=== PATIENT | male | born 1940 | race Caucasian/White ===

== ENCOUNTER 2016-10-06 07:46 | Emergency (ER) | payer MEDICARE, OTHER ==
[~2016-10-06] VITALS: Ht 185.4 cm; Wt 96.8 kg
[~2016-10-06 07:46] MED LIST: ASPIRIN 81M81 MG/TA2 PO; CARDIZEM120 MG PO; COD LIVER OIL1 CAP PO; COLOSTRUM PO; COUMADIN 5MG5 MG/TAB PO; DHEA 50 MG TAB1 EACH PO; GLUCOSAMINE & C1 CA2 PO; K-DUR 10 MEQ T10 MEQ PO; LASIX 20MG TABL20 MG PO; MIRALAX PA17 GM/Dose PO; NIACOR500 MG PO; PRAVACHOL 40MG40 MG PO; PRIL40 PO; PROSCAR 5MG5 MG PO; REMERON30 MG PO; SENNA8.6 MG PO; SINEQUAN 2525 MG/CAP PO; TYLENOL 500MG500 MG PO; VITAMIN C500 MG PO; ZETIA 10MG TAB10 MG PO; [UNRECOGNIZED DRUG - OTHER]
[2016-10-06 09:10] LABS: INR 2.6 (0.8-3.0); PROTHROMBIN TIME 29.9 SECONDS (9.7-12.8)
[2016-10-06] MEDS ORDERED: NORCO 325 MG-51 TAB PO (09:48)
[2016-10-06 10:08] VITALS: BP 134/77; PULSE 85; TEMP 97.7
== END 2016-10-06 10:07 | disposition home or self-care (01) ==
LOC: COL.ER 07:46
PROVIDERS: Emergency Medicine
DX: M25.561 Pain in right knee (principal); M25.461 Effusion, right knee
CPT/HCPCS: J1885

== ENCOUNTER 2017-03-30 14:54 | Emergency (ER) | payer MEDICARE, OTHER ==
[~2017-03-30] VITALS: Ht 185.4 cm; Wt 92.7 kg
[~2017-03-30 14:54] MED LIST changes: +NORCO 325 MG-51 TAB PO
[2017-03-30 14:57] VITALS: TEMP 97.8
[2017-03-30 15:40] LABS: BASO % 0.6 % (0.0-2.0); EOS # 0.1 (0.0-0.7); EOS % 1.7 % (0-4.0); GRAN # 3.6 (1.4-6.5); GRAN % 57.1 % (42.2-75.2); HEMATOCRIT 44.2 % (42.0-52.0); HEMOGLOBIN 15.3 g/dl (13.5-18.0); LYMPH # 1.9 (1.2-3.4); LYMPH % 29.4 % (20.0-51.0); MEAN CELL VOLUME 89 fl (80.0-100.0); MEAN CORPUSCULAR HEMOGLOBIN 31 pg (27.0-31.0); MEAN CORPUSCULAR HGB CONC 35 g/dl (33.0-37.0); MEAN PLATELET VOLUME 8.8 fl (7.4-10.4); MONO # 0.7 (0.1-0.6); MONO % 11.2 % (1.7-9.3); PLATELET COUNT 265 K/mm3 (130-400); RED BLOOD COUNT 4.96 M/mm3 (4.20-5.60); REDCELL DISTRIBUTION WIDTH-CV 13.5 % (11.5-14.5); WHITE BLOOD COUNT 6.4 K/mm3 (4.8-10.8)
[2017-03-30 15:49] LABS: ADJUSTED CALCIUM 9.4 mg/dL (8.4-10.2); ALANINE AMINOTRANSFERASE 48 U/L (21-72); ALBUMIN 4.1 gm/dL (3.5-5.0); ALKALINE PHOSPHATASE 55 U/L (50-136); ANION GAP 12 mmol/L (7-16); BILIRUBIN,TOTAL 0.8 mg/dL (0.0-1.0); BLOOD UREA NITROGEN 15 mg/dL (9-20); CALCIUM 9.5 mg/dL (8.4-10.2); CARBON DIOXIDE 24 mmol/L (22-30); CHLORIDE 100 mmol/L (98-107); CREATININE, serum 0.63 mg/dL (0.66-1.25); GLUCOSE 102 mg/dL (74-106); POTASSIUM 4.1 mmol/L (3.4-5.0); SODIUM 136 mmol/L (137-145); TOTAL PROTEIN 6.9 gm/dL (6.4-8.2)
[2017-03-30 15:50] LABS: INR 2.4 (0.8-3.0); PROTHROMBIN TIME 28.1 SECONDS (9.7-12.8)
[2017-03-30 15:52] LABS: C-REACTIVE PROTEIN < 0.5 mg/dL (0.0-0.9); PARTIAL THROMBOPLASTIN TIME 39.4 SECONDS (26.0-37.0)
[2017-03-30 16:01] LABS: TROPONIN-I < 0.012 ng/mL (0.000-0.034)
[2017-03-30] MEDS ORDERED: PACERONE200 MG PO (16:38)
[2017-03-30 17:35] VITALS: BP 105/86; PULSE 71
== END 2017-03-30 17:37 | disposition home or self-care (01) ==
LOC: COL.ER 14:54
PROVIDERS: Emergency Medicine
DX: I48.91 Unspecified atrial fibrillation (principal); I10 Essential (primary) hypertension; Z79.82 Long term (current) use of aspirin

== ENCOUNTER 2017-04-10 07:33 | Day surgery (SDC) | payer MEDICARE, OTHER ==
[~2017-04-10] VITALS: Ht 185.4 cm; Wt 90.0 kg
[~2017-04-10 07:33] MED LIST changes: +PACERONE200 MG PO
[2017-04-10] MEDS ORDERED: TYLENOL 500MG500 MG PO (08:02)
[2017-04-10] MEDS ORDERED: NATURAL COD LIV1 SGL PO (08:06)
[2017-04-10] MEDS ORDERED: DHEA 50 MG TAB1 EACH PO (08:08)
[2017-04-10] MEDS ORDERED: ACIDOPHILIS PO (08:11)
[2017-04-10 08:12] LABS: HEMATOCRIT 44.2 % (42.0-52.0); HEMOGLOBIN 15.3 g/dl (13.5-18.0); MEAN CELL VOLUME 90 fl (80.0-100.0); MEAN CORPUSCULAR HEMOGLOBIN 31 pg (27.0-31.0); MEAN CORPUSCULAR HGB CONC 35 g/dl (33.0-37.0); MEAN PLATELET VOLUME 8.5 fl (7.4-10.4); PLATELET COUNT 237 K/mm3 (130-400); RED BLOOD COUNT 4.89 M/mm3 (4.20-5.60); REDCELL DISTRIBUTION WIDTH-CV 14.2 % (11.5-14.5); WHITE BLOOD COUNT 5.1 K/mm3 (4.8-10.8)
[2017-04-10 08:21] VITALS: BP 115/87; PULSE 102; TEMP 97.5
[2017-04-10 08:26] LABS: CALCIUM 9.3 mg/dL (8.4-10.2); CREATININE, serum 0.74 mg/dL (0.66-1.25); POTASSIUM 3.6 mmol/L (3.4-5.0)
[2017-04-10 09:10] VITALS: BP 117/88; PULSE 74
[2017-04-10 09:25] VITALS: BP 117/87; PULSE 71
[2017-04-10 09:40] VITALS: BP 131/63; PULSE 63
[2017-04-10 09:55] VITALS: BP 128/88; PULSE 80
== END 2017-04-10 11:13 | disposition home or self-care (01) ==
LOC: COL.CAR 07:33
PROVIDERS: Internal Medicine Cardiovascular Disease
DX: I48.0 Paroxysmal atrial fibrillation (principal); Z79.01 Long term (current) use of anticoagulants; I47.1 Supraventricular tachycardia; Z95.818 Presence of other cardiac implants and grafts; E78.2 Mixed hyperlipidemia; Z87.891 Personal history of nicotine dependence; Z80.8 Family history of malignant neoplasm of other organs or systems; Z90.49 Acquired absence of other specified parts of digestive tract; Z85.820 Personal history of malignant melanoma of skin; Z85.89 Personal history of malignant neoplasm of other organs and systems; Z86.79 Personal history of other diseases of the circulatory system; K21.9 Gastro-esophageal reflux disease without esophagitis; I10 Essential (primary) hypertension; F43.10 Post-traumatic stress disorder, unspecified; M19.90 Unspecified osteoarthritis, unspecified site; M43.07 Spondylolysis, lumbosacral region
CPT/HCPCS: J2704; J7120

== ENCOUNTER 2017-07-27 10:06 | Emergency (ER) | payer MEDICARE, OTHER ==
[~2017-07-27] VITALS: Ht 185.4 cm; Wt 93.2 kg
[~2017-07-27 10:06] MED LIST changes: +ACIDOPHILIS PO; +NATURAL COD LIV1 SGL PO; +SINEQUAN 1100 MG/CAP PO; -SINEQUAN 2525 MG/CAP PO; -VITAMIN C500 MG PO; +VITAMINC1000TA PO
[2017-07-27 10:08] VITALS: BP 130/80; PULSE 89; TEMP 97.9
[2017-07-27 10:59] LABS: BASO % 0.8 % (0.0-2.0); EOS # 0.1 (0.0-0.7); EOS % 2.4 % (0-4.0); GRAN # 3.3 (1.4-6.5); GRAN % 66.1 % (42.2-75.2); HEMATOCRIT 43.9 % (42.0-52.0); LYMPH % 20.3 % (20.0-51.0); MEAN CELL VOLUME 92 fl (80.0-100.0); MEAN CORPUSCULAR HEMOGLOBIN 31 pg (27.0-31.0); MEAN CORPUSCULAR HGB CONC 34 g/dl (33.0-37.0); MEAN PLATELET VOLUME 8.4 fl (7.4-10.4); MONO # 0.5 (0.1-0.6); MONO % 10.2 % (1.7-9.3); PLATELET COUNT 246 K/mm3 (130-400); RED BLOOD COUNT 4.79 M/mm3 (4.20-5.60)
[2017-07-27 11:03] LABS: ADJUSTED CALCIUM 9.3 mg/dL (8.4-10.2); ALBUMIN 4.2 gm/dL (3.5-5.0); BILIRUBIN,TOTAL 0.9 mg/dL (0.0-1.0); CALCIUM 9.5 mg/dL (8.4-10.2); CREATININE, serum 0.79 mg/dL (0.66-1.25); POTASSIUM 3.7 mmol/L (3.4-5.0); TOTAL PROTEIN 7.3 gm/dL (6.4-8.2)
[2017-07-27 11:07] LABS: INR 3.6 (0.8-3.0); PROTHROMBIN TIME 42.6 SECONDS (9.7-12.8)
[2017-07-27 11:10] LABS: PARTIAL THROMBOPLASTIN TIME 42.6 SECONDS (26.0-37.0)
== END 2017-07-27 11:25 | disposition home or self-care (01) ==
LOC: COL.ER 10:06
PROVIDERS: Emergency Medicine
DX: R04.2 Hemoptysis (principal); R04.0 Epistaxis; I10 Essential (primary) hypertension; I48.91 Unspecified atrial fibrillation; E78.00 Pure hypercholesterolemia, unspecified

== ENCOUNTER 2017-08-31 14:13 | Emergency (ER) | payer MEDICARE, OTHER ==
[~2017-08-31] VITALS: Ht 185.4 cm; Wt 93.6 kg
[~2017-08-31 14:13] MED LIST changes: -SINEQUAN 1100 MG/CAP PO; +SINEQUAN150 MG PO
[2017-08-31 14:16] VITALS: TEMP 97.6
[2017-08-31 15:35] LABS: BASO % 0.7 % (0.0-2.0); EOS # 0.2 (0.0-0.7); EOS % 5.1 % (0-4.0); GRAN # 2.1 (1.4-6.5); GRAN % 49.2 % (42.2-75.2); HEMATOCRIT 42.8 % (42.0-52.0); HEMOGLOBIN 14.3 g/dl (13.5-18.0); LYMPH # 1.4 (1.2-3.4); LYMPH % 31.6 % (20.0-51.0); MEAN CELL VOLUME 93 fl (80.0-100.0); MEAN CORPUSCULAR HEMOGLOBIN 31 pg (27.0-31.0); MEAN CORPUSCULAR HGB CONC 33 g/dl (33.0-37.0); MEAN PLATELET VOLUME 8.5 fl (7.4-10.4); MONO # 0.6 (0.1-0.6); MONO % 13.2 % (1.7-9.3); PLATELET COUNT 220 K/mm3 (130-400); RED BLOOD COUNT 4.61 M/mm3 (4.20-5.60); WHITE BLOOD COUNT 4.3 K/mm3 (4.8-10.8)
[2017-08-31 15:40] LABS: INR 2.7 (0.8-3.0); PROTHROMBIN TIME 32.1 SECONDS (9.7-12.8)
[2017-08-31 15:42] LABS: ADJUSTED CALCIUM 9.4 mg/dL (8.4-10.2); BILIRUBIN,TOTAL 0.7 mg/dL (0.0-1.0); CALCIUM 9.4 mg/dL (8.4-10.2); CREATININE, serum 0.75 mg/dL (0.66-1.25); POTASSIUM 3.5 mmol/L (3.4-5.0); TOTAL PROTEIN 7.1 gm/dL (6.4-8.2)
[2017-08-31 15:52] LABS: INFLUENZA A NEGATIVE; INFLUENZA B NEGATIVE
[2017-08-31] MEDS ORDERED: ZITHROMAX Z PA250 MG PO (16:05)
[2017-08-31 16:35] VITALS: BP 116/79; PULSE 104
== END 2017-08-31 16:35 | disposition home or self-care (01) ==
LOC: COL.ER 14:13
PROVIDERS: Family Medicine
DX: J20.9 Acute bronchitis, unspecified (principal); I48.91 Unspecified atrial fibrillation; Z87.891 Personal history of nicotine dependence; Z79.82 Long term (current) use of aspirin; Z79.01 Long term (current) use of anticoagulants

== ENCOUNTER 2018-01-06 19:31 | Emergency (ER) | payer MEDICARE, OTHER ==
[~2018-01-06] VITALS: Ht 185.4 cm; Wt 93.6 kg
[~2018-01-06 19:31] MED LIST changes: +ZITHROMAX Z PA250 MG PO
[2018-01-06 19:33] VITALS: BP 137/75; TEMP 98.2
[2018-01-06 20:45] LABS: BASO % 0.5 % (0.0-2.0); EOS # 0.1 (0.0-0.7); EOS % 1.2 % (0-4.0); GRAN # 2.3 (1.4-6.5); GRAN % 55.7 % (42.2-75.2); HEMOGLOBIN 14.9 g/dl (13.5-18.0); LYMPH # 1.2 (1.2-3.4); LYMPH % 28.5 % (20.0-51.0); MEAN CELL VOLUME 90 fl (80.0-100.0); MEAN CORPUSCULAR HEMOGLOBIN 31 pg (27.0-31.0); MEAN CORPUSCULAR HGB CONC 35 g/dl (33.0-37.0); MEAN PLATELET VOLUME 8.3 fl (7.4-10.4); MONO # 0.6 (0.1-0.6); MONO % 13.9 % (1.7-9.3); PLATELET COUNT 202 K/mm3 (130-400); RED BLOOD COUNT 4.79 M/mm3 (4.20-5.60); REDCELL DISTRIBUTION WIDTH-CV 15.4 % (11.5-14.5)
[2018-01-06 20:50] LABS: INR 2.4 (0.8-3.0); PROTHROMBIN TIME 27.9 SECONDS (9.7-12.8)
[2018-01-06] MEDS ORDERED: AMOXICILLIN 8751 TAB PO (21:02)
[2018-01-06 21:15] VITALS: PULSE 80
== END 2018-01-06 21:15 | disposition home or self-care (01) ==
LOC: COL.ER 19:31
PROVIDERS: Nurse Practitioner
DX: R59.0 Localized enlarged lymph nodes (principal); I10 Essential (primary) hypertension; I48.91 Unspecified atrial fibrillation; E78.5 Hyperlipidemia, unspecified; Z87.891 Personal history of nicotine dependence; Z79.82 Long term (current) use of aspirin; Z79.01 Long term (current) use of anticoagulants

== ENCOUNTER 2018-01-08 10:37 | Day surgery (SDC) | payer MEDICARE, OTHER ==
[~2018-01-08] VITALS: Ht 185.4 cm; Wt 93.6 kg
[~2018-01-08 10:37] MED LIST changes: +AMOXICILLIN 8751 TAB PO
[2018-01-08 11:13] LABS: HEMATOCRIT 44.9 % (42.0-52.0); HEMOGLOBIN 15.3 g/dl (13.5-18.0); MEAN CELL VOLUME 91 fl (80.0-100.0); MEAN CORPUSCULAR HEMOGLOBIN 31 pg (27.0-31.0); MEAN CORPUSCULAR HGB CONC 34 g/dl (33.0-37.0); MEAN PLATELET VOLUME 8.5 fl (7.4-10.4); PLATELET COUNT 222 K/mm3 (130-400); RED BLOOD COUNT 4.92 M/mm3 (4.20-5.60); REDCELL DISTRIBUTION WIDTH-CV 15.3 % (11.5-14.5)
[2018-01-08 11:18] LABS: INR 2.7 (0.8-3.0)
[2018-01-08 11:28] LABS: CALCIUM 9.3 mg/dL (8.4-10.2); CREATININE, serum 0.76 mg/dL (0.66-1.25)
[2018-01-08 11:43] VITALS: BP 122/86; PULSE 88; TEMP 98.2
[2018-01-08 12:15] VITALS: BP 118/79; PULSE 92
[2018-01-08 12:30] VITALS: BP 116/76; PULSE 72
[2018-01-08 12:45] VITALS: BP 112/75; PULSE 72
[2018-01-08 13:00] VITALS: BP 107/80; PULSE 72
== END 2018-01-08 13:20 | disposition home or self-care (01) ==
LOC: COL.CAR 10:37
PROVIDERS: Internal Medicine Cardiovascular Disease
DX: I48.1 Persistent atrial fibrillation (principal); I10 Essential (primary) hypertension; Z79.82 Long term (current) use of aspirin; Z85.820 Personal history of malignant melanoma of skin; Z79.01 Long term (current) use of anticoagulants
CPT/HCPCS: J2704; J7120

== ENCOUNTER 2018-04-19 08:55 | Day surgery (SDC) | payer MEDICARE, OTHER ==
[~2018-04-19] VITALS: Ht 185.5 cm; Wt 91.7 kg
[~2018-04-19 08:55] MED LIST changes: +CARDIZEM CD 18180 MG PO; -CARDIZEM120 MG PO; -SENNA8.6 MG PO; +SENOKOT S 50 MG1 TAB PO; -SINEQUAN150 MG PO; +SINEQUAN75 MG PO; -[UNRECOGNIZED DRUG - OTHER]; +[UNRECOGNIZED DRUG - OTHER] PO
[2018-04-19 10:29] VITALS: BP 124/69; PULSE 63; TEMP 97.7
[2018-04-19] MEDS ORDERED: FLONASEALLERGY NS (10:55)
[2018-04-19] MEDS ORDERED: FLOMAX 0.40.4 MG/CAP PO (11:00)
[2018-04-19] MEDS ORDERED: CORICIDIN COUGH1 TAB PO (11:01)
[2018-04-19] MEDS ORDERED: TUSSIN DM 10 M118 M1 PO (11:02)
[2018-04-19 11:45] VITALS: BP 142/81; PULSE 61
[2018-04-19 12:20] VITALS: BP 122/74; PULSE 60
[2018-04-19 12:40] VITALS: BP 124/76; PULSE 55
== END 2018-04-19 13:04 | disposition home or self-care (01) ==
LOC: COL.CAR 08:55
DX: Z45.09 Encounter for adjustment and management of other cardiac device (principal); I48.91 Unspecified atrial fibrillation; K21.9 Gastro-esophageal reflux disease without esophagitis; I10 Essential (primary) hypertension; D03.39 Melanoma in situ of other parts of face; M19.90 Unspecified osteoarthritis, unspecified site; F43.10 Post-traumatic stress disorder, unspecified; E78.2 Mixed hyperlipidemia; Z90.49 Acquired absence of other specified parts of digestive tract; Z88.8 Allergy status to other drugs, medicaments and biological substances; Z79.01 Long term (current) use of anticoagulants; Z79.82 Long term (current) use of aspirin; Z79.51 Long term (current) use of inhaled steroids; Z87.891 Personal history of nicotine dependence; Z83.6 Family history of other diseases of the respiratory system
CPT/HCPCS: J0690; J2250; J3010; J7040

== ENCOUNTER 2018-11-16 19:32 | Emergency (ER) | payer MEDICARE, OTHER ==
[~2018-11-16] VITALS: Ht 185.4 cm; Wt 92.3 kg
[~2018-11-16 19:32] MED LIST changes: +CORICIDIN COUGH1 TAB PO; +FLOMAX 0.40.4 MG/CAP PO; +FLONASEALLERGY NS; +TUSSIN DM 10 M118 M1 PO
[2018-11-16 19:43] VITALS: TEMP 98.6
[2018-11-16 20:25] LABS: BASO % 0.5 % (0.0-2.0); EOS # 0.1 (0.0-0.7); EOS % 2.1 % (0-4.0); GRAN # 2.2 (1.4-6.5); GRAN % 50.8 % (42.2-75.2); HEMATOCRIT 42.6 % (42.0-52.0); HEMOGLOBIN 14.4 g/dl (13.5-18.0); LYMPH # 1.5 (1.2-3.4); LYMPH % 35.1 % (20.0-51.0); MEAN CELL VOLUME 91 fl (80.0-100.0); MEAN CORPUSCULAR HEMOGLOBIN 31 pg (27.0-31.0); MEAN CORPUSCULAR HGB CONC 34 g/dl (33.0-37.0); MEAN PLATELET VOLUME 8.6 fl (7.4-10.4); MONO # 0.5 (0.1-0.6); MONO % 11.3 % (1.7-9.3); PLATELET COUNT 243 K/mm3 (130-400); RED BLOOD COUNT 4.66 M/mm3 (4.20-5.60); REDCELL DISTRIBUTION WIDTH-CV 15.5 % (11.5-14.5)
[2018-11-16 20:36] LABS: ALANINE AMINOTRANSFERASE 44 U/L (21-72); ALBUMIN 4.1 gm/dL (3.5-5.0); ALKALINE PHOSPHATASE 78 U/L (50-136); ANION GAP 9 mmol/L (7-16); AST,SGOT 47 U/L (15-37); BILIRUBIN,TOTAL 0.6 mg/dL (0.0-1.0); BLOOD UREA NITROGEN 12 mg/dL (9-20); C-REACTIVE PROTEIN < 0.5 mg/dL (0.0-0.9); CALCIUM 9.5 mg/dL (8.4-10.2); CARBON DIOXIDE 27 mmol/L (22-30); CHLORIDE 100 mmol/L (98-107); CREATININE, serum 0.72 mg/dL (0.66-1.25); GLUCOSE 159 mg/dL (74-106); POTASSIUM 3.6 mmol/L (3.4-5.0); SODIUM 137 mmol/L (137-145); TOTAL PROTEIN 7.4 gm/dL (6.4-8.2)
[2018-11-16 20:48] LABS: ERYTHROCYTE SEDIMENTATION RATE 15 mm/hr (0-30)
[2018-11-16] MEDS ORDERED: SEPTRA DS 8001 TAB PO (20:50)
[2018-11-16] MEDS ORDERED: CEPHALEXIN500 M1 PO (20:50)
[2018-11-16 21:23] VITALS: BP 127/80; PULSE 71
== END 2018-11-16 21:24 | disposition home or self-care (01) ==
LOC: COL.ER 19:32
PROVIDERS: Emergency Medicine
DX: L03.114 Cellulitis of left upper limb (principal); I10 Essential (primary) hypertension; I48.91 Unspecified atrial fibrillation; Z79.01 Long term (current) use of anticoagulants; Z79.82 Long term (current) use of aspirin
CPT/HCPCS: A4216; J0696

== ENCOUNTER 2019-03-13 05:30 | Emergency (ER) | payer MEDICARE, OTHER ==
[~2019-03-13] VITALS: Ht 185.4 cm; Wt 93.2 kg
[~2019-03-13 05:30] MED LIST changes: +CEPHALEXIN500 M1 PO; +SEPTRA DS 8001 TAB PO
[2019-03-13 05:55] VITALS: BP 140/77; TEMP 97.4
[2019-03-13 06:22] LABS: BASO % 0.5 % (0.0-2.0); EOS # 0.1 (0.0-0.7); EOS % 2.4 % (0-4.0); GRAN # 2.3 (1.4-6.5); GRAN % 55.2 % (42.2-75.2); HEMATOCRIT 42.2 % (42.0-52.0); HEMOGLOBIN 14.5 g/dl (13.5-18.0); LYMPH # 1.2 (1.2-3.4); LYMPH % 29.7 % (20.0-51.0); MEAN CELL VOLUME 91 fl (80.0-100.0); MEAN CORPUSCULAR HEMOGLOBIN 31 pg (27.0-31.0); MEAN CORPUSCULAR HGB CONC 34 g/dl (33.0-37.0); MEAN PLATELET VOLUME 8.7 fl (7.4-10.4); MONO # 0.5 (0.1-0.6); PLATELET COUNT 247 K/mm3 (130-400); RED BLOOD COUNT 4.64 M/mm3 (4.20-5.60); REDCELL DISTRIBUTION WIDTH-CV 14.6 % (11.5-14.5)
[2019-03-13 06:33] LABS: ALBUMIN 3.7 gm/dL (3.5-5.0); BILIRUBIN,TOTAL 0.6 mg/dL (0.0-1.0); CALCIUM 9.2 mg/dL (8.4-10.2); CREATININE, serum 0.73 (0.66-1.25); POTASSIUM 3.7 mmol/L (3.4-5.0); TOTAL PROTEIN 6.9 gm/dL (6.4-8.2)
[2019-03-13 07:48] LABS: INR 2.1 (0.8-3.0)
[2019-03-13] MEDS ORDERED: FLAGYL500 MG PO (09:33)
[2019-03-13] MEDS ORDERED: AMOXICILLIN 8751 TAB PO (09:33)
[2019-03-13 09:50] VITALS: PULSE 69
== END 2019-03-13 09:50 | disposition home or self-care (01) ==
LOC: COL.ER 05:30
PROVIDERS: Emergency Medicine
DX: K52.9 Noninfective gastroenteritis and colitis, unspecified (principal); I48.91 Unspecified atrial fibrillation; I10 Essential (primary) hypertension; Z79.82 Long term (current) use of aspirin; Z79.01 Long term (current) use of anticoagulants; Z79.51 Long term (current) use of inhaled steroids; Z98.890 Other specified postprocedural states; Z87.438 Personal history of other diseases of male genital organs
CPT/HCPCS: J7030; Q9967

== ENCOUNTER 2019-05-13 08:56 | Emergency (ER) | payer MEDICARE, OTHER ==
[~2019-05-13] VITALS: Ht 185.4 cm; Wt 93.2 kg
[~2019-05-13 08:56] MED LIST changes: +FLAGYL500 MG PO
[2019-05-13 09:04] VITALS: TEMP 97.6
[2019-05-13 09:21] LABS: BASO % 0.3 % (0.0-2.0); EOS # 0.1 (0.0-0.7); EOS % 1.3 % (0-4.0); GRAN % 63.5 % (42.2-75.2); HEMATOCRIT 48.5 % (42.0-52.0); HEMOGLOBIN 16.5 g/dl (13.5-18.0); LYMPH # 1.3 (1.2-3.4); LYMPH % 21.3 % (20.0-51.0); MEAN CELL VOLUME 92 fl (80.0-100.0); MEAN CORPUSCULAR HEMOGLOBIN 31 pg (27.0-31.0); MEAN CORPUSCULAR HGB CONC 34 g/dl (33.0-37.0); MEAN PLATELET VOLUME 8.7 fl (7.4-10.4); MONO # 0.8 (0.1-0.6); MONO % 13.3 % (1.7-9.3); PLATELET COUNT 295 K/mm3 (130-400); RED BLOOD COUNT 5.25 M/mm3 (4.20-5.60); REDCELL DISTRIBUTION WIDTH-CV 14.4 % (11.5-14.5)
[2019-05-13 09:26] LABS: INR 2.1 (0.8-3.0); PROTHROMBIN TIME 25.1 SECONDS (9.7-12.8)
[2019-05-13 09:29] LABS: PARTIAL THROMBOPLASTIN TIME 38.3 SECONDS (26.0-37.0)
[2019-05-13 09:34] LABS: ALANINE AMINOTRANSFERASE 57 U/L (21-72); ALBUMIN 4.6 gm/dL (3.5-5.0); ALKALINE PHOSPHATASE 77 U/L (50-136); ANION GAP 12 mmol/L (7-16); AST,SGOT 56 U/L (15-37); BILIRUBIN,TOTAL 0.6 mg/dL (0.0-1.0); BLOOD UREA NITROGEN 15 mg/dL (9-20); CALCIUM 10.2 mg/dL (8.4-10.2); CARBON DIOXIDE 26 mmol/L (22-30); CHLORIDE 102 mmol/L (98-107); CREATININE, serum 0.71 (0.66-1.25); GLUCOSE 116 mg/dL (74-106); POTASSIUM 4.1 mmol/L (3.4-5.0); SODIUM 140 mmol/L (137-145); TOTAL PROTEIN 8.2 gm/dL (6.4-8.2)
[2019-05-13 09:48] LABS: TROPONIN-I < 0.012 ng/mL (0.000-0.035)
[2019-05-13 11:53] VITALS: BP 114/79; PULSE 79
== END 2019-05-13 12:00 | disposition home or self-care (01) ==
LOC: COL.ER 08:56
PROVIDERS: Emergency Medicine
DX: I48.91 Unspecified atrial fibrillation (principal); I10 Essential (primary) hypertension; E78.5 Hyperlipidemia, unspecified; Z79.82 Long term (current) use of aspirin
CPT/HCPCS: J2704; J2765; J7040

== ENCOUNTER 2019-08-21 16:45 | Emergency (ER) | payer MEDICARE, OTHER ==
[~2019-08-21] VITALS: Ht 185.4 cm; Wt 88.6 kg
[2019-08-21 17:05] VITALS: BP 131/72; TEMP 98.1
[2019-08-21] MEDS ORDERED: ZITHROMAX 250M250 MG PO (17:40)
[2019-08-21] MEDS ORDERED: PREDNISONE20 MG PO (17:40)
[2019-08-21 17:56] VITALS: PULSE 61
== END 2019-08-21 17:57 | disposition home or self-care (01) ==
LOC: COL.ER 16:45
DX: J45.909 Unspecified asthma, uncomplicated (principal); I10 Essential (primary) hypertension; I48.91 Unspecified atrial fibrillation; E78.5 Hyperlipidemia, unspecified; Z79.82 Long term (current) use of aspirin; Z79.01 Long term (current) use of anticoagulants
CPT/HCPCS: J7512

== ENCOUNTER 2020-01-15 10:23 | Inpatient (IN) | payer MEDICARE, OTHER ==
[~2020-01-15] VITALS: Ht 185.4 cm; Wt 90.1 kg
[2020-01-15] VITALS (328 sets, daily range): BP systolic 114–122; BP diastolic 76–91; PULSE 86–101; TEMP 98.3–98.9; O2SAT 92–100
[~2020-01-15 10:23] MED LIST changes: +PREDNISONE20 MG PO; +ZITHROMAX 250M250 MG PO
[2020-01-15 10:49] LABS: BASO % 0.7 % (0.0-2.0); EOS # 0.2 (0.0-0.7); EOS % 3.9 % (0-4.0); GRAN # 3.6 (1.4-6.5); GRAN % 64.1 % (42.2-75.2); HEMATOCRIT 45.3 % (42.0-52.0); HEMOGLOBIN 15.3 g/dl (13.5-18.0); LYMPH # 1.3 (1.2-3.4); LYMPH % 22.7 % (20.0-51.0); MEAN CELL VOLUME 88 fl (80.0-100.0); MEAN CORPUSCULAR HEMOGLOBIN 30 pg (27.0-31.0); MEAN CORPUSCULAR HGB CONC 34 g/dl (33.0-37.0); MEAN PLATELET VOLUME 8.9 fl (7.4-10.4); MONO # 0.5 (0.1-0.6); MONO % 8.4 % (1.7-9.3); PLATELET COUNT 241 K/mm3 (130-400); RED BLOOD COUNT 5.15 M/mm3 (4.20-5.60); REDCELL DISTRIBUTION WIDTH-CV 15.6 % (11.5-14.5)
[2020-01-15 10:55] LABS: INR 2.3 (0.8-3.0); PROTHROMBIN TIME 26.1 SECONDS (9.7-12.8)
[2020-01-15 11:04] LABS: ALANINE AMINOTRANSFERASE 143 U/L (4-49); ALKALINE PHOSPHATASE 79 U/L (50-136); ANION GAP 9 mmol/L (7-16); AST,SGOT 140 U/L (15-37); BILIRUBIN,TOTAL 0.8 mg/dL (0.0-1.0); BLOOD UREA NITROGEN 13 mg/dL (9-20); CALCIUM 9.4 mg/dL (8.4-10.2); CARBON DIOXIDE 23 mmol/L (22-30); CHLORIDE 104 mmol/L (98-107); GLUCOSE 143 mg/dL (74-106); POTASSIUM 4.1 mmol/L (3.4-5.0); SODIUM 137 mmol/L (137-145); TOTAL PROTEIN 7.4 gm/dL (6.4-8.2)
[2020-01-15 11:26] LABS: TROPONIN-I < 0.012 ng/mL (0.000-0.035)
--- NOTE | 2020-01-15 12:30 | NUR ---
PATIENT ARRIVES TO ICU. HE HAS NO C/Os AND VSS. AMIO GTT INFUSING AT 1 MG/MIN. HE IS ALERT AND ORIENTED. ASSESSMENT COMPLETED. CARE TAKEN OVER AT THIS TIME.
[2020-01-15] MEDS ORDERED: ACIDOPHILIS PO (13:18)
[2020-01-15] MEDS ORDERED: VENTOLIN0.09 MG IH (13:19)
[2020-01-15] MEDS ORDERED: FLONASEALLERGY NS (13:24)
[2020-01-15] MEDS ORDERED: ZOLOFT 25MG25 MG PO (13:28)
[2020-01-15] MEDS ORDERED: DEEP SEA 45 ML45 ML NS (13:29)
[2020-01-15] MEDS ORDERED: SEROQUEL 1100 MG/TAB PO (13:29)
--- NOTE | 2020-01-15 19:30 | NUR ---
REPORT GIVEN TO DOUGLAS CHEUNG.
[2020-01-16] VITALS (409 sets, daily range): BP systolic 88–122; BP diastolic 65–84; PULSE 64–87; TEMP 97.6–98; O2SAT 92–100
[2020-01-16 05:49] LABS: BASO % 0.6 % (0.0-2.0); EOS # 0.3 (0.0-0.7); EOS % 5.5 % (0-4.0); GRAN # 2.5 (1.4-6.5); HEMATOCRIT 42.5 % (42.0-52.0); HEMOGLOBIN 14.5 g/dl (13.5-18.0); LYMPH # 1.4 (1.2-3.4); LYMPH % 29.1 % (20.0-51.0); MEAN CELL VOLUME 87 fl (80.0-100.0); MEAN CORPUSCULAR HEMOGLOBIN 30 pg (27.0-31.0); MEAN CORPUSCULAR HGB CONC 34 g/dl (33.0-37.0); MEAN PLATELET VOLUME 8.3 fl (7.4-10.4); MONO # 0.6 (0.1-0.6); MONO % 12.6 % (1.7-9.3); PLATELET COUNT 207 K/mm3 (130-400); RED BLOOD COUNT 4.88 M/mm3 (4.20-5.60); REDCELL DISTRIBUTION WIDTH-CV 15.5 % (11.5-14.5)
[2020-01-16 06:00] LABS: ALBUMIN 3.6 gm/dL (3.5-5.0); BILIRUBIN,TOTAL 0.7 mg/dL (0.0-1.0); CALCIUM 8.9 mg/dL (8.4-10.2); CREATININE, serum 0.65 (0.66-1.25); MAGNESIUM 2.1 mg/dL (1.6-2.3); POTASSIUM 3.9 mmol/L (3.4-5.0); TOTAL PROTEIN 6.7 gm/dL (6.4-8.2)
--- NOTE | 2020-01-16 08:06 | NUR ---
Dr. Henry rounds at this time. Orders as entered CPOE.
--- NOTE | 2020-01-16 09:13 | NUR ---
Dr. Vicente rounds at this time. POC discussed to include synchronized cardioversion with AA.
--- NOTE | 2020-01-16 10:50 | NUR ---
DOUGLAS Zhong assisted with synchronized cardioversion. See associated documentation.
--- NOTE | 2020-01-16 10:50 | NUR ---
Bedside elective cardioversion - 1055: Time-Out completed with ERIKA Fontaine, MD Cinthia, and myself - all in agreement. 1057: Synchronized 200J shock delivered - Conversion of rhythm to NSR noted 1101: RT called for 12-Lead EKG DOUGLAS Ervin at bedside. 1103: ERIKA Fontaine departed - RASS=-2 - O2 taken from 10L/min OM to 5L/min 1108: 12-Lead EKG completed - Oxygen reduced from 5L/min to 2L/min 1110: Oxygen discontinued. RASS=-1, AOx4, following commands, vital signs stable, Report handed back to DOUGLAS Ervin
--- NOTE | 2020-01-16 11:15 | NUR ---
Dr. Henry called and updated to successful cardioversion and cardiology okay for patient to DC home later this afternoon. adknowledges and will see patient again later.
--- NOTE | 2020-01-16 11:48 | NUR ---
ADRIANA met with the patient to discuss discharge plan. The patient lives alone in [place]. He does not have any family that live nearby, but states that his girlfriend, Elvia Thorpe (ph#[phone]) does. He reports independence with ADLs and does not have any DME. The patient's PCP is Dr. Herrera on the [facility] at the [facility]. He receives his medications through the [place], [place], or [facility] in [place]. He reports no difficulties obtaining his meds. The patient does not have advanced directives in EMR, but he reports that he does have them completed and at home. He states that his girlfriend, Elvia, is his DPOA-HC. The patient plans to return home upon discharge. No additional needs at this time.
--- NOTE | 2020-01-16 12:26 | NUR ---
First visit from the potato chip sorter. No needs right now.
[2020-01-16] MEDS ORDERED: PACERONE200 MG PO (13:55)
--- NOTE | 2020-01-16 15:00 | NUR ---
Patient provided DC education and verbalizes understanding. Peripheral IV discontinued. All belongings sent with. Discharged via ambulatory to private car.
== END 2020-01-16 15:00 | disposition home or self-care (01) | DRG 310 ==
LOC: COL.ER 10:23 → ICU 11:27 → IMCU 19:19
PROVIDERS: Emergency Medicine; ADMIT Student in an Organized Health Care Education/Training Program
PROC: 5A2204Z Restoration of Cardiac Rhythm, Single (ICD-10-PCS; principal; 2020-01-15)
DX: I48.0 Paroxysmal atrial fibrillation (principal); I10 Essential (primary) hypertension; N40.0 Benign prostatic hyperplasia without lower urinary tract symptoms; E78.5 Hyperlipidemia, unspecified; K21.9 Gastro-esophageal reflux disease without esophagitis; Z79.82 Long term (current) use of aspirin; Z87.891 Personal history of nicotine dependence; Z79.01 Long term (current) use of anticoagulants; Z85.828 Personal history of other malignant neoplasm of skin
CPT/HCPCS: 99222-AI; 99239; J0282; J2704; J7060

== ENCOUNTER → 2020-06-30 | Outpatient (CLI) | payer MEDICARE, OTHER ==
[~2020-06-30] MED LIST changes: +BLUE-EMU LIDOC1 EACH TP; +COUMADIN 22.5 MG/TAB PO; +DEEP SEA 45 ML45 ML NS; +FLEXERIL 1010 MG/TAB PO; +LOVENOX 100100 MG/ML SQ; +MIRALAX510G PO; +PACERONE100 MG PO; +ROXICODONE 55 MG/TAB PO; +SEROQUEL 1100 MG/TAB PO; +SYSTANE 0.3-0.1 EACH OP; +VENTOLIN0.09 MG IH; +ZINC OXIDE56.7 GM TOP; +ZOLOFT 25MG25 MG PO
== END ==
LOC: COL.RAD 08:24
DX: K52.9 Noninfective gastroenteritis and colitis, unspecified (principal); J84.10 Pulmonary fibrosis, unspecified; R91.1 Solitary pulmonary nodule; K86.89 Other specified diseases of pancreas; R59.0 Localized enlarged lymph nodes; Z96.641 Presence of right artificial hip joint
CPT/HCPCS: Q9967

== ENCOUNTER 2020-11-15 14:08 | Emergency (ER) | payer MEDICARE, OTHER ==
[~2020-11-15] VITALS: Ht 185.4 cm; Wt 81.4 kg
[2020-11-15 14:19] VITALS: TEMP 98.4
[2020-11-15 14:36] LABS: BASO % 0.9 % (0.0-2.0); EOS % 0.9 % (0-4.0); GRAN # 1.9 (1.4-6.5); GRAN % 54.1 % (42.2-75.2); HEMATOCRIT 41.5 % (42.0-52.0); HEMOGLOBIN 13.8 g/dl (13.5-18.0); LYMPH # 1.1 (1.2-3.4); LYMPH % 30.1 % (20.0-51.0); MEAN CELL VOLUME 86 fl (80.0-100.0); MEAN CORPUSCULAR HEMOGLOBIN 29 pg (27.0-31.0); MEAN CORPUSCULAR HGB CONC 33 g/dl (33.0-37.0); MEAN PLATELET VOLUME 8.8 fl (7.4-10.4); MONO # 0.5 (0.1-0.6); PLATELET COUNT 243 K/mm3 (130-400); RED BLOOD COUNT 4.82 M/mm3 (4.20-5.60); REDCELL DISTRIBUTION WIDTH-CV 15.9 % (11.5-14.5)
[2020-11-15 14:46] LABS: ALANINE AMINOTRANSFERASE 61 U/L (4-49); ALBUMIN 4.1 gm/dL (3.5-5.0); ALKALINE PHOSPHATASE 108 U/L (50-136); ANION GAP 8 mmol/L (7-16); AST,SGOT 64 U/L (15-37); BILIRUBIN,TOTAL 0.8 mg/dL (0.0-1.0); BLOOD UREA NITROGEN 21 mg/dL (9-20); CALCIUM 9.5 mg/dL (8.4-10.2); CARBON DIOXIDE 26 mmol/L (22-30); CHLORIDE 101 mmol/L (98-107); GLUCOSE 96 mg/dL (74-106); SODIUM 135 mmol/L (137-145)
[2020-11-15 15:03] LABS: TROPONIN-I < 0.012 ng/mL (0.000-0.035)
[2020-11-15 16:40] VITALS: BP 117/676; PULSE 72
== END 2020-11-15 16:40 | disposition home or self-care (01) ==
LOC: COL.ER 14:08
PROVIDERS: Physician Assistant
DX: I48.91 Unspecified atrial fibrillation (principal); I10 Essential (primary) hypertension; E78.5 Hyperlipidemia, unspecified; K21.9 Gastro-esophageal reflux disease without esophagitis; N40.0 Benign prostatic hyperplasia without lower urinary tract symptoms; F32.9 Major depressive disorder, single episode, unspecified; F43.10 Post-traumatic stress disorder, unspecified; Z88.8 Allergy status to other drugs, medicaments and biological substances; Z88.6 Allergy status to analgesic agent; Z88.7 Allergy status to serum and vaccine; Z87.891 Personal history of nicotine dependence; Z79.82 Long term (current) use of aspirin
CPT/HCPCS: J2704

== ENCOUNTER 2021-04-15 13:08 | Emergency (ER) | payer MEDICARE, OTHER ==
[~2021-04-15] VITALS: Ht 185.4 cm; Wt 83.2 kg
[2021-04-15 13:12] VITALS: TEMP 98
[2021-04-15 13:32] LABS: BASO % 0.3 % (0.0-2.0); EOS # 0.1 (0.0-0.7); EOS % 2.1 % (0-4.0); GRAN # 1.6 (1.4-6.5); GRAN % 46.6 % (42.2-75.2); HEMATOCRIT 41.4 % (42.0-52.0); HEMOGLOBIN 13.5 g/dl (13.5-18.0); LYMPH # 1.2 (1.2-3.4); MEAN CELL VOLUME 86 fl (80.0-100.0); MEAN CORPUSCULAR HEMOGLOBIN 28 pg (27.0-31.0); MEAN CORPUSCULAR HGB CONC 33 g/dl (33.0-37.0); MEAN PLATELET VOLUME 8.8 fl (7.4-10.4); MONO # 0.5 (0.1-0.6); MONO % 15.7 % (1.7-9.3); PLATELET COUNT 189 K/mm3 (130-400); REDCELL DISTRIBUTION WIDTH-CV 16.2 % (11.5-14.5)
[2021-04-15] MEDS ORDERED: CORDARONE200 MG/TAB PO (13:37)
[2021-04-15 13:38] LABS: INR 1.7 (0.8-3.0); PROTHROMBIN TIME 19.4 SECONDS (9.7-12.8)
[2021-04-15 13:40] LABS: ALANINE AMINOTRANSFERASE 102 U/L (4-49); ALBUMIN 3.8 gm/dL (3.5-5.0); ALKALINE PHOSPHATASE 75 U/L (50-136); ANION GAP 5 mmol/L (7-16); AST,SGOT 112 U/L (15-37); BILIRUBIN,TOTAL 0.7 mg/dL (0.0-1.0); BLOOD UREA NITROGEN 18 mg/dL (9-20); CALCIUM 9.3 mg/dL (8.4-10.2); CARBON DIOXIDE 30 mmol/L (22-30); CHLORIDE 101 mmol/L (98-107); CREATININE, serum 0.76 (0.66-1.25); GLUCOSE 97 mg/dL (74-106); POTASSIUM 4.2 mmol/L (3.4-5.0); SODIUM 136 mmol/L (137-145); TOTAL PROTEIN 7.1 gm/dL (6.4-8.2)
[2021-04-15] MEDS ORDERED: VITAMIN FLUSH-F1 CAP (13:40)
[2021-04-15 13:41] LABS: PARTIAL THROMBOPLASTIN TIME 34.9 SECONDS (26.0-37.0)
[2021-04-15] MEDS ORDERED: VITAMINC250CH (13:41)
[2021-04-15] MEDS ORDERED: SENEXON-S 50-81 EACH PO (13:41)
[2021-04-15] MEDS ORDERED: GLUCOSAMINE/CHO1 CA5 PO (13:42)
[2021-04-15] MEDS ORDERED: PERIACTIN 4MG TA4 MG PO (13:43)
[2021-04-15] MEDS ORDERED: MELATIN 3 MG-11 TAB PO (13:44)
[2021-04-15] MEDS ORDERED: ELIQUIS 5MG PO (13:44)
[2021-04-15] MEDS ORDERED: ZOLOFT 100MG100 MG PO (13:45)
[2021-04-15] MEDS ORDERED: COD LIVER OIL1 CAP PO (13:45)
[2021-04-15 14:09] LABS: TROPONIN-I < 0.012 ng/mL (0.000-0.035)
[2021-04-15] MEDS ORDERED: PACERONE400 MG PO (14:25)
[2021-04-15 15:44] VITALS: BP 110/67; PULSE 67
== END 2021-04-15 15:45 | disposition home or self-care (01) ==
LOC: COL.ER 13:08
PROVIDERS: Family Medicine
DX: I48.91 Unspecified atrial fibrillation (principal); Z95.818 Presence of other cardiac implants and grafts; Z87.891 Personal history of nicotine dependence; Z79.01 Long term (current) use of anticoagulants; Z79.899 Other long term (current) drug therapy
CPT/HCPCS: J2704; J7040

== ENCOUNTER → 2021-12-14 | Outpatient (CLI) | payer MEDICARE, OTHER ==
[~2021-12-14] MED LIST changes: +CORDARONE200 MG/TAB PO; +ELIQUIS 5MG PO; +GLUCOSAMINE/CHO1 CA5 PO; +MELATIN 3 MG-11 TAB PO; +PACERONE400 MG PO; +PERIACTIN 4MG TA4 MG PO; +SENEXON-S 50-81 EACH PO; +VITAMIN FLUSH-F1 CAP; +VITAMINC250CH; +ZOLOFT 100MG100 MG PO
== END ==
LOC: COL.RAD 09:14
DX: D72.819 Decreased white blood cell count, unspecified (principal)

== ENCOUNTER 2022-04-10 12:49 | Emergency (ER) | payer MEDICARE, OTHER ==
[~2022-04-10] VITALS: Ht 185.4 cm; Wt 84.1 kg
[2022-04-10 13:02] VITALS: TEMP 98.1
[2022-04-10] MEDS ORDERED: NORCO 325 MG-51 TAB PO (16:27)
[2022-04-10] MEDS ORDERED: LIDODERM 5% PATC1 EA TP (16:29)
[2022-04-10 16:40] VITALS: BP 138/81; PULSE 66
== END 2022-04-10 16:40 | disposition home or self-care (01) ==
LOC: COL.ER 12:49
DX: M25.551 Pain in right hip (principal); M54.50 Low back pain, unspecified; Z87.891 Personal history of nicotine dependence; Z96.641 Presence of right artificial hip joint; Z88.5 Allergy status to narcotic agent
CPT/HCPCS: J2360

== ENCOUNTER 2022-06-27 11:35 | Emergency (ER) | payer MEDICARE, OTHER ==
[~2022-06-27] VITALS: Ht 185.4 cm; Wt 82.7 kg
[~2022-06-27 11:35] MED LIST changes: +LIDODERM 5% PATC1 EA TP
[2022-06-27 11:39] VITALS: BP 176/81; TEMP 98
[2022-06-27 13:47] LABS: BASO % 0.5 % (0.0-2.0); EOS # 0.1 K/mm3 (0.0-0.7); EOS % 3.7 % (0.0-4.0); GRAN # 0.7 K/mm3 (1.4-6.5); HEMATOCRIT 36.9 % (42.0-52.0); LYMPH % 47.7 % (20.0-51.0); MEAN CELL VOLUME 84 fl (80.0-100.0); MEAN CORPUSCULAR HEMOGLOBIN 27 pg (27-31); MEAN CORPUSCULAR HGB CONC 33 g/dl (33.0-37.0); MONO # 0.3 K/mm3 (0.1-0.6); MONO % 15.6 % (1.7-9.3); PLATELET COUNT 180 K/mm3 (130-400); RED BLOOD COUNT 4.42 M/mm3 (4.20-5.60); REDCELL DISTRIBUTION WIDTH-CV 16.5 % (11.5-14.5)
[2022-06-27 14:06] LABS: ALBUMIN 3.5 gm/dL (3.4-4.8); BILIRUBIN,TOTAL 0.5 mg/dL (0.2-1.2); CALCIUM 9.3 mg/dL (8.4-10.2); CREATININE, serum 0.8 mg/dL (0.72-1.25); POTASSIUM 3.7 mmol/L (3.5-4.5); TOTAL PROTEIN 7.4 gm/dL (6.2-8.1)
[2022-06-27 14:24] LABS: COLLECTION METHOD CLEAN CATCH
[2022-06-27 14:46] LABS: MUCOUS Present (NOT PRESENT); SQUAMOUS EPITHELIAL None Seen /hpf (0-10); URINE BACTERIA None Seen /hpf (NONE SEEN); URINE RBC 0-2 /hpf (0-2)
[2022-06-27 14:49] LABS: URINE COLOR Yellow (YELLOW)
[2022-06-27 14:50] LABS: PH 5.5 (5-8); URINE APPEARANCE Clear (CLEAR/HAZY); URINE BLOOD Negative (NEGATIVE); URINE GLUCOSE Negative (NEGATIVE); URINE KETONE Negative (NEGATIVE); URINE NITRATE Negative (NEGATIVE); URINE PROTEIN(semi-quant) Negative (NEGATIVE); URINE UROBILINOGEN 0.2 (NEGATIVE)
[2022-06-27] MEDS ORDERED: NORCO 325 MG-51 TAB PO ×3 (15:59→16:05)
[2022-06-27 16:15] VITALS: PULSE 56
== END 2022-06-27 16:25 | disposition home or self-care (01) ==
LOC: COL.ER 11:35
PROVIDERS: Emergency Medicine
DX: R10.31 Right lower quadrant pain (principal); Z87.19 Personal history of other diseases of the digestive system; Z90.49 Acquired absence of other specified parts of digestive tract; Z98.890 Other specified postprocedural states
CPT/HCPCS: Q9967

== ENCOUNTER → 2022-12-01 | Outpatient (CLI) | payer MEDICARE, OTHER | LOC: COL.RAD 09:33 | DX: D72.819 Decreased white blood cell count, unspecified (principal) ==

== ENCOUNTER → 2024-03-10 | Outpatient (CLI) | payer MEDICARE, OTHER ==
[~2024-03-10] MED LIST changes: +CELEBREX 200MG200 MG PO; +DUO-KAPS1 CAP PO; +NITROSTAT0.4 MG/TAB SL; +OSCAL 500 TAB500 MG PO; +TOPAMAX 25MG25 M1 PO; +TYLENOL 325MG325 MG PO; +VITAMIN C500 MG PO; +VITAMIND3 5000 PO
[2024-03-10 12:06] LABS: ALANINE AMINOTRANSFERASE 76 U/L (0-55); ALBUMIN 1.8 g/dL (3.4-4.8); ALKALINE PHOSPHATASE 943 U/L (40-150); ANION GAP 9 mmol/L (7-16); AST,SGOT 160 U/L (5-34); BILIRUBIN,TOTAL 2.8 mg/dL (0.2-1.2); BLOOD UREA NITROGEN 13 mg/dL (8-26); CALCIUM 7.7 mg/dL (8.4-10.2); CHLORIDE 98 mEq/L (98-107); CREATININE, serum 0.64 mg/dL (0.72-1.25); GLUCOSE 94 mg/dL (70-99); LIPASE 86 U/L (8-78); POTASSIUM 4.3 mEq/L (3.5-4.5); SODIUM 132 mEq/L (136-145); TOTAL PROTEIN 4.9 g/dl (6.2-8.1)
[2024-03-10 12:07] LABS: TROPONIN-I < 0.010 ng/mL (0.00-0.033)
[2024-03-10 12:08] LABS: HEMOGLOBIN 10.3 g/dl (13.5-18.0); MEAN CELL VOLUME 82 fl (80.0-100.0); MEAN CORPUSCULAR HEMOGLOBIN 27 pg (27-31); MEAN CORPUSCULAR HGB CONC 33 g/dl (33.0-37.0); MEAN PLATELET VOLUME 9.3 fl (7.4-10.4); PLATELET COUNT 407 K/mm3 (130-400); RED BLOOD COUNT 3.76 M/mm3 (4.20-5.60); REDCELL DISTRIBUTION WIDTH-CV 18.1 % (11.5-14.5)
[2024-03-10 12:09] LABS: HEMATOCRIT 30.8 % (42.0-52.0)
[2024-03-10 13:10] LABS: ANISOCYTOSIS 1+; BAND 6 % (0-10); LYMPHOCYTE 10 % (20.0-51.0); NEUTROPHILS 77 % (42.0-75.2); PLATELET ESTIMATE NORMAL (NORMAL)
== END ==
LOC: ZCOL.LAB 10:39
PROVIDERS: Internal Medicine
DX: R07.9 Chest pain, unspecified (principal)

== ENCOUNTER → 2024-03-12 | Outpatient (CLI) | payer MEDICARE ==
[~2024-03-12] MED LIST changes: +Iohexol 300 - 100 ML VIAL IV ONE; +NS 100 ML IV SCH
== END ==
LOC: COL.RAD 13:00
DX: E87.70 Fluid overload, unspecified (principal); J90 Pleural effusion, not elsewhere classified; J81.1 Chronic pulmonary edema; R16.2 Hepatomegaly with splenomegaly, not elsewhere classified; Z98.890 Other specified postprocedural states
CPT/HCPCS: Q9967

== ENCOUNTER 2024-03-22 11:26 | Inpatient (IN) | payer MEDICARE, OTHER ==
[~2024-03-22] VITALS: Ht 182.9 cm; Wt 90.6 kg
[2024-03-22] VITALS (345 sets, daily range): BP systolic 103–117; BP diastolic 63–65; PULSE 95–107; TEMP 98.2–100.1; O2SAT 87–98
[~2024-03-22 11:26] MED LIST changes: -Iohexol 300 - 100 ML VIAL IV ONE; -NS 100 ML IV SCH
[2024-03-22] MEDS ORDERED: NS 1,000 ML IV ONE (11:45)
[2024-03-22 11:51] LABS: ARTERIAL BLD GAS O2 SATURATION 95.9 % (92-100); ARTERIAL BLD GAS TCO2 CT 23.7; ARTERIAL BLOOD GAS BASE EXCESS 0.2 (-2-2); ARTERIAL BLOOD GAS HCO3 22.8 meq/L (22-26); ARTERIAL BLOOD GAS PCO2 30.6 mmHg (35-45); ARTERIAL BLOOD GAS PO2 80.1 mmHg (80-100); ARTERIAL BLOOD GAS pH 7.49 (7.35-7.45)
[2024-03-22 12:00] LABS: HEMOGLOBIN 10.6 g/dl (13.5-18.0); MEAN CELL VOLUME 91 fl (80.0-100.0); MEAN CORPUSCULAR HEMOGLOBIN 29 pg (27-31); MEAN CORPUSCULAR HGB CONC 32 g/dl (33.0-37.0); MEAN PLATELET VOLUME 9.1 fl (7.4-10.4); PLATELET COUNT 263 K/mm3 (130-400); RED BLOOD COUNT 3.62 M/mm3 (4.20-5.60); REDCELL DISTRIBUTION WIDTH-CV 21.2 % (11.5-14.5)
[2024-03-22] MEDS ORDERED: Furosemide 40 MG/4 ML VIAL IV ONE ×2 (12:15→16:00)
[2024-03-22 12:16] LABS: ALBUMIN 1.8 g/dL (3.4-4.8); BILIRUBIN,TOTAL 1.8 mg/dL (0.2-1.2); CALCIUM 7.9 mg/dL (8.4-10.2); CREATININE, serum 0.7 mg/dL (0.72-1.25); POTASSIUM 3.6 mEq/L (3.5-4.5); TOTAL PROTEIN 6.1 g/dl (6.2-8.1)
[2024-03-22 12:22] LABS: BASO % 0.5 % (0.0-2.0); EOS # 0.1 K/mm3 (0.0-0.7); EOS % 1.2 % (0.0-4.0); GRAN # 2.6 K/mm3 (1.4-6.5); GRAN % 61.1 % (42.2-75.2); LYMPH # 0.8 K/mm3 (1.2-3.4); LYMPH % 19.2 % (20.0-51.0); MONO # 0.7 K/mm3 (0.1-0.6); MONO % 15.7 % (1.7-9.3)
[2024-03-22 12:26] LABS: ANISOCYTOSIS 2+; EOSINOPHIL 1 % (0-4); HYPOCHROMIA 1+; LYMPHOCYTE 13 % (20.0-51.0); METAMYELOCYTE 1 % (0-0); NEUTROPHILS 72 % (42.0-75.2); PLATELET ESTIMATE NORMAL (NORMAL)
[2024-03-22 13:01] LABS: COLLECTION METHOD CLEAN CATCH
[2024-03-22] MEDS ORDERED: TYLENOL SU650 MG/SUP RC (13:12)
[2024-03-22 13:20] LABS: URINE APPEARANCE CLEAR (CLEAR/HAZY); URINE BLOOD NEGATIVE (NEGATIVE); URINE COLOR Dark Yellow (YELLOW); URINE GLUCOSE NEGATIVE (NEGATIVE); URINE KETONE NEGATIVE (NEGATIVE); URINE NITRATE NEGATIVE (NEGATIVE); URINE PROTEIN(semi-quant) NEGATIVE (NEGATIVE)
[2024-03-22] MEDS ORDERED: PACERONE400 MG PO (13:29)
[2024-03-22] MEDS ORDERED: BIOTENE DRY M1000 ML PO (13:30)
[2024-03-22] MEDS ORDERED: DULCOLAX S10 MG/SUPP RC (13:30)
[2024-03-22] MEDS ORDERED: PERIACTIN 4MG TA4 MG PO (13:31)
[2024-03-22] MEDS ORDERED: FENTANYL 25 MCG TD (13:32)
[2024-03-22] MEDS ORDERED: FLOMAX 0.40.4 MG/CAP PO (13:32)
[2024-03-22] MEDS ORDERED: NEURONTIN100 MG/CAP PO (13:33)
[2024-03-22] MEDS ORDERED: IMODIUM 2MG CAPS2 MG PO (13:34)
[2024-03-22] MEDS ORDERED: LASIX 40MG TABL40 MG PO (13:35)
[2024-03-22] MEDS ORDERED: ROXICODONE 55 MG/TAB PO (13:38)
[2024-03-22] MEDS ORDERED: KLOR-CON 1010 MEQ PO (13:39)
[2024-03-22] MEDS ORDERED: SENNA-S 50 MG-81 TAB PO (13:40)
[2024-03-22] MEDS ORDERED: TYLENOL 325MG325 MG PO (13:41)
[2024-03-22] MEDS ORDERED: ZOLOFT 50MG50 MG PO (13:43)
[2024-03-22] MEDS ORDERED: Acetaminophen 500 MG TAB PO PRN (15:00)
[2024-03-22] MEDS ORDERED: Ondansetron 4 MG/2 ML VIAL IV PRN (15:00)
[2024-03-22] MEDS ORDERED: MILK OF MA400 MG/52 PO (15:04)
[2024-03-22] MEDS ORDERED: MAG-AL LIQUID 230 ML (15:13)
[2024-03-22] MEDS ORDERED: NYAMYC100000 U/G TP (15:15)
[2024-03-22] MEDS ORDERED: oxyCODONE 5 MG TAB PO PRN (15:30)
--- NOTE | 2024-03-22 20:34 | NUR ---
THE PATIENT ARRIVED TO THE UNIT AT 2033 ACCOMPANIED BY THE SUPERVISOR FABRICATION DEPARTMENT. THE PATIENT WAS TRANSFERRED TO THE UNIT BED WITH 2 ASSIST. THE PATIENT WAS ALERT AND ORIENTED AND APPROPRIATE. A 25 MCG FENTANYL PATCH WAS NOTED ON THE PATIENTS LEFT SCAPULA. THE PATIENT WAS REPOSITIONED FOR COMFORT AND ORIENTED TO THE ROOM AND BED CONTROLS. VITAL SIGNS STABLE. CALL LIGHT WITHIN REACH WELL THE PTS PERSONAL BELONGINGS. BED IN LOW POSITION AND BED ALARM ON.
[2024-03-22] MEDS ORDERED: Sertraline 50 MG TAB PO SCH (21:00)
[2024-03-22] MEDS ORDERED: Apixaban 5 MG TABLET PO SCH (21:00)
[2024-03-22] MEDS ORDERED: Gabapentin 100 MG CAP PO SCH (21:00)
[2024-03-22] MEDS ORDERED: Cyproheptadine 4 MG TAB PO SCH (21:00)
[2024-03-23] VITALS (7 sets, daily range): BP systolic 92–125; BP diastolic 56–63; PULSE 78–96; TEMP 97.1–98.8
--- NOTE | 2024-03-23 02:14 | NUR ---
NURSING SHIFT ASSESSMENT COMPLETED. THE PATIENT REPORTED LEFT HIP AND LEG PAIN 8/10. PRN MEDICATION TO BE PROVIDED. THE PATIENT DOES HAVE A 25 [address]ANY[address] P[address] IN [address]. THE PATIENT IS ALERT, ORIENTED AND APPROPRIATE. THE PLAN OF CARE AND EVENING MEDICATIONS TO INCLUDE PAIN MEDICATIONS REVIEWED AND QUESTIONS ANSWERED. FRESH WATER PROVIDED. CALL LIGHT AND PERSONAL BELONGINGS WITHIN REACH. BED IN LOW POSITION AND BED ALARM ON.
[2024-03-23 06:09] LABS: MEAN CELL VOLUME 89 fl (80.0-100.0); MEAN CORPUSCULAR HGB CONC 33 g/dl (33.0-37.0); MEAN PLATELET VOLUME 9.5 fl (7.4-10.4); PLATELET COUNT 209 K/mm3 (130-400); RED BLOOD COUNT 3.13 M/mm3 (4.20-5.60); REDCELL DISTRIBUTION WIDTH-CV 20.5 % (11.5-14.5)
[2024-03-23 06:14] LABS: HEMATOCRIT 27.8 % (42.0-52.0); HEMOGLOBIN 9.1 g/dl (13.5-18.0); MEAN CORPUSCULAR HEMOGLOBIN 29 pg (27-31)
[2024-03-23 06:30] LABS: CALCIUM 7.8 mg/dL (8.4-10.2); CREATININE, serum 0.7 mg/dL (0.72-1.25); POTASSIUM 3.3 mEq/L (3.5-4.5)
[2024-03-23 06:55] LABS: BAND 5 % (0-10); EOSINOPHIL 4 % (0-4); LYMPHOCYTE 17 % (20.0-51.0); NEUTROPHILS 68 % (42.0-75.2)
[2024-03-23 06:56] LABS: ANISOCYTOSIS 3+; HYPOCHROMIA 1+; PLATELET ESTIMATE NORMAL (NORMAL)
--- NOTE | 2024-03-23 07:14 | NUR ---
25 MCG FENTANYL PATCH VERIFIED ON PTS LEFT SCAPULA WITH DOUGLAS CARVAJAL DURING BEDSIDE SHIFT REPORT.
--- NOTE | 2024-03-23 07:26 | NUR ---
Bedside report received from DOUGLAS Linton. Pt resting in bed with no complaints. Call light within reach and fall precautions in place.
[2024-03-23] MEDS ORDERED: Sennosides/Docusate 8.6-50 MG TAB PO SCH (09:00)
[2024-03-23] MEDS ORDERED: Amiodarone 200 MG TAB PO SCH (09:00)
[2024-03-23] MEDS ORDERED: Polyethylene Glycol 3350 17 GM PDS PO SCH (09:00)
[2024-03-23] MEDS ORDERED: Furosemide 100 MG/10 ML VIAL IV ONE (09:15)
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
--- NOTE | 2024-03-23 11:21 | NUR ---
SW met with patient to complete intake. Patient provides he lives alone in [facility]. POA/Guardian is Leanne Thorne [phone]. Patient provides he is independent with ADLs, and utilizes a walker, and no home health services at this time. [facility]. Patient provides he plans to return to his home upon discharge. SW will continue to follow. Discharge plan: home (may need home health services) PT OT rec TBD
--- NOTE | 2024-03-23 14:10 | NUR ---
Data: Spiritual Care visit attempted during Vice President Marketing & Development rounds. Patient sleeping. Assessment: None. Patient sleeping. Plan of Care: Chaplains will remain available as needed/requested while Patient is admitted to this hospital.
[2024-03-23] MEDS ORDERED: Furosemide 40 MG/4 ML VIAL IV ONE (18:30)
--- NOTE | 2024-03-23 19:24 | NUR ---
This nurse notifed Dr. Squires that pt BP was 92/56 prior to administering one time ordered dose of Lasix IV [address] Squires instructed this nurse to hold Lasix at this time by phone.
[2024-03-23] MEDS ORDERED: fentaNYL 25 MCG 72 HR PATCH TD SCH (20:00)
[2024-03-23] MEDS ORDERED: fentaNYL Patch Removal/Drugbuster TD SCH (20:00)
--- NOTE | 2024-03-23 21:15 | NUR ---
NURSING SHIFT ASSESSMENT COMPLETED. THE PATIENT WAS ALERT AND ORIENTED. THE PATIENT REPORTED GENERALIZED PAIN 8/10. PRN OXYCODONE TO BE PROVIDED. THE PATIENT ALSO HAS A 25 MCG FENTANYL PATCH ON HIS LEFT SCAPULA THAT IS SCHEDULED TO CHANGED THIS EVENING. FRESH WATER AND REPOSITIONING WAS PROVIDED. NO OTHER NEEDS AT THIS TIME. THE CALL LIGHT AND PERSONAL BELONGINGS ARE WITHIN REACH. THE BED IS IN THE LOW POSITION AND THE BED ALARM IS ON.
[2024-03-24 03:22] VITALS: BP 104/58; PULSE 85; TEMP 98.4
[2024-03-24 06:53] LABS: MEAN CELL VOLUME 90 fl (80.0-100.0); MEAN CORPUSCULAR HGB CONC 33 g/dl (33.0-37.0); MEAN PLATELET VOLUME 9.5 fl (7.4-10.4); PLATELET COUNT 245 K/mm3 (130-400); REDCELL DISTRIBUTION WIDTH-CV 20.2 % (11.5-14.5)
[2024-03-24 06:58] LABS: HEMATOCRIT 28.7 % (42.0-52.0); HEMOGLOBIN 9.4 g/dl (13.5-18.0); MEAN CORPUSCULAR HEMOGLOBIN 29 pg (27-31)
--- NOTE | 2024-03-24 07:06 | NUR ---
Bedside report received from DOUGLAS Linton. Pt resting in bed with no complaints. Call light within reach.
[2024-03-24 07:13] LABS: CREATININE, serum 0.72 mg/dL (0.72-1.25); MAGNESIUM 1.9 mg/dL (1.6-2.6)
--- NOTE | 2024-03-24 07:37 | NUR ---
25 MCG FENTANYL PATCH VERIFICATION PERFORMED DURING BEDSIDE SHIFT REPORT WITH DOUGLAS CARVAJAL. FENTANYL PATCH IS ON RIGHT SCAPULA.
[2024-03-24 07:56] VITALS: BP 103/93; PULSE 86; TEMP 98.1
[2024-03-24 08:12] LABS: BAND 2 % (0-10); EOSINOPHIL 1 % (0-4); HYPOCHROMIA 1+; LYMPHOCYTE 21 % (20.0-51.0); NEUTROPHILS 61 % (42.0-75.2); PLATELET ESTIMATE NORMAL (NORMAL)
[2024-03-24 08:13] LABS: ANISOCYTOSIS 2+; TARGET CELLS 1+; TEAR DROP CELLS 1+
--- NOTE | 2024-03-24 08:15 | NUR ---
Pt awake in bed in pleasant mood. Shift assessment completed. VSS with O2 in place at 5L NC. Deep tissue injury noted to bilateral heels and heel boots in place. Huerta catheter in place draining depedent peach yellow colored urine. Pt denies pain at this time rating 0/10. INT to Lt AC patent with no swelling, redness, or drainage. Pt has no request at this time, call light within reach and fall precautions in place.
[2024-03-24] MEDS ORDERED: cefTRIAXone 1 G in Water For Injection,Sterile 10 ML IV SCH (10:30)
[2024-03-24] MEDS ORDERED: Azithromycin 500 MG in NS 250 ML IV SCH (10:30)
[2024-03-24 11:26] VITALS: BP 105/62; PULSE 86; TEMP 98.3
[2024-03-24] MEDS ORDERED: Iohexol 300 - 100 ML VIAL IV ONE (11:34)
[2024-03-24] MEDS ORDERED: NS 100 ML IV SCH (11:36)
--- NOTE | 2024-03-24 11:50 | NUR ---
20g IV started into Rt forearm x1 attempt, pt tolerated well wtih no complaints.
[2024-03-24] MEDS ORDERED: Furosemide 100 MG/10 ML VIAL IV ONE (12:00)
[2024-03-24] MEDS ORDERED: Albumin (Human) 100 ML IV SCH (12:15)
[2024-03-24] MEDS ORDERED: Furosemide 100 MG/10 ML VIAL IV SCH (12:15)
[2024-03-24 13:36] VITALS: BP 97/62
--- NOTE | 2024-03-24 13:39 | NUR ---
Pt BP checked before administration of
--- NOTE | 2024-03-24 13:40 | NUR ---
Pt BP assessed before administration of IV Lasix 60 mg order. BP noted at 97/62. Dr. Squires notifed by phone of BP and instructed this nurse to administer IV Lasix as ordered.
[2024-03-24 15:07] VITALS: BP 107/58; PULSE 84; TEMP 97
--- NOTE | 2024-03-24 18:30 | NUR ---
2 NURSE VERIFICATION OF FENTANYL PATCH ON RT SCAPULA.
[2024-03-24 19:20] VITALS: BP 111/71; PULSE 81; TEMP 98.2
--- NOTE | 2024-03-24 20:30 | NUR ---
UPON SHIFT ASSESSMENT, ALECIA WAS IN BED AND AXO X3 WITH OXYMASK SET TO 4L. HE APPEARS VERY FRAIL WITH STERNUM AND FRONTAL RIBS EVIDENT/PROMINENT THROUGH THIN SKIN. VEGA WAS NOTED DURING ASSESSMENT QUESTIONS. NO TELE ORDERS IN PLACE. JARAMILLO DRAINING ANGELA CLEAR URINE-DIURESING WELL- AND ALBUMIN RUNNING IN RT FA IV. LUNG SOUNDS ARE DIMINISHED THROUGHOUT. PATIENT HAS DIFFUSE SCABS AND ECCHYMOSIS, SCROTUM AND GROIN EXCORIATED. HEELS RED AND BOGGY, BOOTS IN PLACE. PATIENT C/O 10/10 BLLE PAIN DESSCRIBE SHOOTING R/T HIP REPAIR. PRN SHANNON ADMINISTERED. MED PASS COMPLETE VITAL SIGNS ARE CURRENTLY WNL.CALL LIGHT WITHIN REACH.
[2024-03-25] VITALS (12 sets, daily range): BP systolic 90–120; BP diastolic 47–64; PULSE 80–92; TEMP 97.5–98.3
--- NOTE | 2024-03-25 01:56 | NUR ---
SACRAL DTI AND DIFFUSE SCABBING ON BACK OF THIGHS NOTED. MEPIPLEX PLACED AND INTERDRY APPLIED TO GROIN FOR EXCORIATION.
--- NOTE | 2024-03-25 02:53 | NUR ---
CALL PLACED TO HOSPITALISTMISTI. PATIENT SCROTUM EXCORIATED WITH YEAST LOOKING WHITE DEBRIS. TORB FOR MICONAZOLE POWDER GIVEN.
--- NOTE | 2024-03-25 07:05 | NUR ---
Bedside report received from DOUGLAS Dent. Pt resting in bed with no complaints. Call light within reach and fall precautions in place.
[2024-03-25 07:16] LABS: MEAN CELL VOLUME 91 fl (80.0-100.0); MEAN CORPUSCULAR HGB CONC 32 g/dl (33.0-37.0); MEAN PLATELET VOLUME 9.3 fl (7.4-10.4); PLATELET COUNT 172 K/mm3 (130-400); RED BLOOD COUNT 2.73 M/mm3 (4.20-5.60); REDCELL DISTRIBUTION WIDTH-CV 19.9 % (11.5-14.5)
[2024-03-25 07:23] LABS: HEMATOCRIT 24.9 % (42.0-52.0); MEAN CORPUSCULAR HEMOGLOBIN 29 pg (27-31)
--- NOTE | 2024-03-25 07:29 | NUR ---
Two nurse verfication of fentanyl patch to Rt scapula completed with RN Filipe.
[2024-03-25 07:44] LABS: CALCIUM 8.2 mg/dL (8.4-10.2); CREATININE, serum 0.73 mg/dL (0.72-1.25); POTASSIUM 3.4 mEq/L (3.5-4.5)
[2024-03-25 08:31] LABS: LYMPHOCYTE 25 % (20.0-51.0); NEUTROPHILS 56 % (42.0-75.2)
[2024-03-25 08:32] LABS: ANISOCYTOSIS 2+; BASOPHIL 1 % (0-2); EOSINOPHIL 3 % (0-4); PLATELET ESTIMATE NORMAL (NORMAL); TEAR DROP CELLS 1+
[2024-03-25] MEDS ORDERED: Miconazole 2% Topical Powder BOTTLE TP SCH (09:00)
[2024-03-25] MEDS ORDERED: *Potassium Replacement Protocol MC SCH (10:45)
[2024-03-25] MEDS ORDERED: Potassium Bicarbonate/Citrate 20 MEQ Effervescent TAB PO SCH (11:30)
--- NOTE | 2024-03-25 12:30 | NUR ---
Shift assessment completed. VSS with oxymask in place at 8L. Skin integrity noted in assessment. INT to LAC and RFA patent with no swelling, redness, or drainage. Fentanyl patch to Rt scapula removed and discarded into drug buster container with DOUGLAS Hernandez as witness per orders. Pt denies pain at this rating 0/10 and states he is sleepy at this time. Update provided to sameera Baig by phone. Q2HR turns in place with a specialty mattress. Pt ambulates to chair with physical therapy x2 assist. Huerta catheter in place with dependent magali colored urine. Pericare provided. Pt has no complaints at this time. Call light within reach and fall precautions in place.
--- NOTE | 2024-03-25 12:51 | NUR ---
During rounding with Dr. Soto, pt-Edmar, myself, ADRIANA Inman, Erika JUAN, [facility] discussed. Pt's status reviewed. Currently DNR/DNI. Dx CHF Exacerbation. 7L of O2, CPAP when sleeping. Pt had not been eating, not participating in PT/OT due to Fatigue. "I am just too tired to do these things. If I get some rest I will try." Dr. Olea encouraged pt that he can participate in care or pt could opt for Hospice if he finds it too taxing. Pt had refused even to get into wheelchair due to fatigue. [facility] meeting with daughter Leanne later today per ADRIANA Bliss. Pt very frail looking but was able to keep engaged in conversation. "I can do these things if people will just let me rest for a little bit." Dr. Olea told pt that it seemed it was hard for him and she would review things with him and his daughter.
--- NOTE | 2024-03-25 13:00 | NUR ---
Data: Patient accepted spiritual care visit offered during Patient Day Coordinator rounds. Patient was seated in a recliner. He seemed slightly confused about where he was, asking Patient Day Coordinator, "Is that the bed I will be using this evening?" His lunch arrived. His IV pumps began beeping. A MULTICRAFT OPERATOR arrived to help. MULTICRAFT OPERATOR requested assistance from RN. RN gave him a nasal canula instead of the mask which made eating lunch easier for him. Assessment: Patient is slightly confused about his condition and his hospital stay. Plan of Care: Patient Day Coordinator provided supportive listening; retrieved a straw for Patient's iced tea; assisted with locating the TV channel he wanted. Patient thanked Patient Day Coordinator for visit. Patient was eating lunch when Patient Day Coordinator left the room. Chaplains will remain available as needed/requested while Patient is admitted to this hospital.
--- NOTE | 2024-03-25 14:20 | NUR ---
We had a Palliative/GOC meeting with pt, myself, Dr. Soto, ADRIANA Ruthy Y, DPCANDIDA Leanne, son- matteo-on phone. Case was reviewed and discussion led to Aggressive Care vs Palliative with Hospice Care. Currently pt is up in chair due to 2 assist. Meal tray in front of pt but he had only had a few bites of fruit. Leanne stated that she had had a discussion with Edmar prior to our meeting and he stated clearly to her that he did not want aggressive care. She then asked pt if she was representing him correctly and he stated, "Yes". Leanne Baig and pt wanted to discuss further the options and will make a decision about discharge tomorrow. Waiting on Echo results to review functionality of pt's heart. Ruthy will continue to follow up with options.
--- NOTE | 2024-03-25 14:52 | NUR ---
tie up worker attended interdisciplinary clinical rounding with Dr. Olea. Goals of care was discussed, patient stated he was tired and did not want to participate in therapy. SW contacted patient's DPOA-HC, Leanne and explained they would like to have a goals of care conversation. Leanne stated she would be at the hospital around 130 pm. SW met with patient, Leanne, Dr. Olea, and Vicki manager simulation, patient's son was participating via telephone. After discussing patient's medical status, Leanne reported she spoke with patient prior to this meeting regarding patient's wishes. Leanne reports patient was not wanting to be aggressive with care to the point of putting a peg tube in since patient has not been eating. Patient verified he does not want to do a peg tube. Hospice care was discussed and patient stated he is agreeable to hospice. Family and patient wants 24 hours to see how he does. SW discussed options for hospice, Leanne expressed she was familiar with the options in the area and reported they had been discussing [facility] for hospice care. SW explained she was welcome to check if they are able to accept patient at time of discharge from hospital but to note that typically [facility] will not accept from the hospital unless previously established. SW provided her phone number to follow up with [facility] decision. Jovanni and Leanne agreed [facility] would be their preference second choice may be [facility] but they want to discuss more. ADRIANA contacted [facility] whom expressed their nurse was going to meet with patient first thing in the morning tomorrow to assess and see if they can meet his needs and they would call the outreach and education social worker tomorrow. Discharge plan: Pending
--- NOTE | 2024-03-25 16:26 | NUR ---
Assisted pt back to bed x2 assist with PCT Esther. Pt has complaints of pain rating 10/10. PRN pain medication administered as ordered. Pt resting in bed at this time with CPAP machine in place. Call light within reach and fall precautions in place.
--- NOTE | 2024-03-25 17:13 | NUR ---
grout worker received voicemail from Leanne Thorne, KANDICE[facility]-HC, that their preference is [facility] whom is going to evaluate patient around 10 am tomorrow to determine if they are able to accept. Leanne stated second choice is [facility]. Leanne expressed she would be okay with a referral being sent to [facility] to determine availability. ADRIANA faxed referral to [facility] and [facility]. Discharge plan: care home with hospice
--- NOTE | 2024-03-25 18:09 | NUR ---
During rounding on pts this nurse noted that pt cpap machine tubing was disconnected from pt. Pt assessed SpO2 assessed and found to be at 60%. RT Laury notifed by phone. This nurse reconnected cpap machine to pt. Pt SpO2 back to 93% on CPAP machine on 8L. Pt denies feeling SOA. VS cart left at bedside to assist with alerting nursing team if SpO2 becomes lower than 87%. Call light within reach and fall precautions in place.
--- NOTE | 2024-03-25 20:30 | NUR ---
UPON SHIFT ASSESSMENT, PATIENT WAS AXO X4 IN BED WITH CPAP AT 6L BLEED IN. LUNG SOUNDS ARE DIMINSHED. PATIENT STILL APPEARS QUITE FRAIL BUT IS IN GOOD SPIRITS. DIURESING WELL-JARAMILLO DRAINING YELLOW CLEAR URINE. PATIENT CURRENTLY DENIES PAIN OR NEEDS AT THIS TIME. ALBUMIN RUNNING IN RT FA IV. FIGUEREDO, PATIENT GRANDSON VISITING BEDSIDE. CALL LIGHT WITHIN REACH.
--- NOTE | 2024-03-25 21:20 | NUR ---
CALL PLACED TO RT, PATIENT CPAP ALARMING. 2124 RT BEDSIDE TO ADJUST CPAP AND PLACE PATIENT ON NC FOR PO MED ADMINISTERATION. PATIENT TOLERATED PILLS WELL. CPAPA REAPPLIED AND ALARMS NO LONGER SOUNDING. PATIENT VOICED GRATITUDE AND WISHED TO REST. CALL LIGHT WITHIN REACH.
[2024-03-26] VITALS (14 sets, daily range): BP systolic 90–125; BP diastolic 45–69; PULSE 71–98; TEMP 97.6–98.2
--- NOTE | 2024-03-26 02:30 | NUR ---
PATIENT DOES NOT TOLERATE POSITION CHANGE WELL. EXHIBITS VOCAL PROTEST AND GRIMACING, RETURNS TO BASELINE WHEN DONE AND FALLS ASLEEP.
--- NOTE | 2024-03-26 04:20 | NUR ---
PATIENT SLEEPING SOUNDLY. CPAP INTACT WITH 6L BLEED IN. NO SIGNS OF DISTRESS.
[2024-03-26 06:35] LABS: MEAN CELL VOLUME 90 fl (80.0-100.0); MEAN CORPUSCULAR HGB CONC 32 g/dl (33.0-37.0); MEAN PLATELET VOLUME 9.9 fl (7.4-10.4); PLATELET COUNT 165 K/mm3 (130-400); RED BLOOD COUNT 2.72 M/mm3 (4.20-5.60); REDCELL DISTRIBUTION WIDTH-CV 19.4 % (11.5-14.5)
[2024-03-26 06:51] LABS: ALBUMIN 2.9 g/dL (3.4-4.8); BILIRUBIN,TOTAL 2.1 mg/dL (0.2-1.2); CALCIUM 8.4 mg/dL (8.4-10.2); CREATININE, serum 0.77 mg/dL (0.72-1.25); POTASSIUM 3.3 mEq/L (3.5-4.5); TOTAL PROTEIN 5.5 g/dl (6.2-8.1)
--- NOTE | 2024-03-26 07:00 | NUR ---
Patient resting in bed, CPAP on, awake but difficult to understand. Report received from night RN. Henderson.
[2024-03-26 07:04] LABS: HEMATOCRIT 24.6 % (42.0-52.0); HEMOGLOBIN 7.9 g/dl (13.5-18.0); MEAN CORPUSCULAR HEMOGLOBIN 29 pg (27-31)
[2024-03-26 07:36] LABS: BAND 2 % (0-10); LYMPHOCYTE 18 % (20.0-51.0); METAMYELOCYTE 1 % (0-0); NEUTROPHILS 62 % (42.0-75.2)
[2024-03-26 07:37] LABS: ANISOCYTOSIS 2+; PLATELET ESTIMATE NORMAL (NORMAL)
[2024-03-26] MEDS ORDERED: Potassium Bicarbonate/Citrate 20 MEQ Effervescent TAB PO SCH (08:15)
--- NOTE | 2024-03-26 09:00 | NUR ---
Patient resting in bed, Eleene DPOA at bedside. Pt still with CPAP. Call placed to RT to check patient. CPAP removed by RT, NC placed with 7L. Pt desat to 80's, O2 adjuested to 10L and oxymasc started. Pt sats 90-91 now. Pt with difficulties taking his pills, helped with some applesauce. Asssessment completed, dressings changed, pat repositioned.
--- NOTE | 2024-03-26 12:30 | NUR ---
harm reduction worker was notified [facility] unable to accept patient at this time. harm reduction worker attended interdisciplinary clinical rounding with Dr. Olea. Patient wants to go with hospice. [facility] is evaluating to determine if they can accept. SW notified patient and DPOA-HC that [facility] is unable to accept. Patient and family would like a referral to [facility] if [facility] is unable to accept. harm reduction worker secure emailed referral to [facility]. Discharge plan: Hospice - pending agency
--- NOTE | 2024-03-26 13:40 | NUR ---
SPO2 ON 15LPM OXYMK 78% PLACED PT ON CPA 7 FIO2 70% RN BESIDE
--- NOTE | 2024-03-26 15:34 | NUR ---
plant operations worker was notified [facility] could accept if [facility] unable to accept. ADRIANA was notified by Leanne that [facility] is unable to meet patient's needs, so the family would like to pursue with [facility]. ADRIANA notified [facility] of family decision. ADRIANA discussed oxygen needs as patient was recently put back on the CPAP due to destating on his oxygen. [facility] explained they do not have a CPAP but could work on finding one if the patient and family were wanting the CPAP. ADRIANA expressed she would call the family and discuss. ADRIANA contacted [facility] whom expressed the patient does not like having the CPAP on and they understand that they are at the end of life for patient so as long as they can keep him comfortable with his oxygen he does not need the CPAP. ADRIANA notified [facility] of this. [facility] explained they would contact patient's PCP to determine if they are able to follow for hospice care. plant operations worker notified Dr. Olea whom contacted Dr. Darling whom was following patient at [facility]. Dr. Olea expressed Dr. Darling is able to accept. ADRIANA was notified by Karel at [facility] that Dr. Darling's nurse told her he would be unable to follow. ADRIANA confirmed with Dr. Olea that Dr. Darling told her he could. ADRIANA contacted Leanne whom expressed she did not have a preference on the doctor that would follow. ADRIANA notified [facility] and decided to move forward with Dr. Darling since he already accepted. [facility] stated they could accept tomorrow with an arrival time of 1:30 pm. ADRIANA notified Leanne of transfer time to [facility] tomorrow. ADRIANA notified patient's nurse and Dr. Olea. ADRIANA scheduled transportation through the [facility] for tomorrow, 03/27/24 at 1:30 pm. ADRIANA notified Jovanni, patient's son, of patient's transfer tomorrow. Jovanni had questions about billing. ADRIANA explained she would ask [facility] to contact him. No further needs at this time. Discharge plan: [facility]
--- NOTE | 2024-03-26 18:15 | NUR ---
Patient put back on oxymask 10L saturating 93-95%. Pt was saturating 100% with cpap and asked for a rest since he will use it at night. RT and this nurse assessed patient with oxymask, tolerating well.
--- NOTE | 2024-03-26 19:18 | NUR ---
Patient resting in bed, refusing eating. Bedside report given to DOUGLAS Royal.
--- NOTE | 2024-03-26 20:32 | NUR ---
PATIENT IS RESTING IN BED RECEIVING 12L O2 VIA OXYMASK. AFTER RN ADMINISTERED HIS HS MEDS, WHICH WERE CRUSHED AND IN APPLESAUCE, HE BEGAN TO EXPERIENCE SOME NAUSEA WITH DRY HEAVES BUT NO VOMIT. HE DOES REPORT PAIN THROUGHOUT HIS BODY, NOT LOCALIZED TO ONE SPECIFIC AREA. CALL LIGHT IS WITHIN REACH. BED IS LOCKED AND IN LOW POSTION.
[2024-03-27] VITALS (7 sets, daily range): BP systolic 101–113; BP diastolic 54–70; PULSE 87–91; TEMP 99.1–99.8
--- NOTE | 2024-03-27 07:27 | NUR ---
Bedside report received from DOUGLAS Royal. Pt awake in bed with no complaints. Call light within reach and fall precautions in place.
[2024-03-27] MEDS ORDERED: ROXANOL 20MG20 MG/ML SL (09:15)
[2024-03-27] MEDS ORDERED: ATIVAN 1MG T1 MG/TAB PO (09:15)
[2024-03-27] MEDS ORDERED: SYSTANE 0.4%-0.1 SOL OU (09:15)
[2024-03-27] MEDS ORDERED: TRANSDERM-0.5 MG/21 TD (09:15)
[2024-03-27] MEDS ORDERED: DULCOLAX S10 MG/SUPP RC (09:15)
[2024-03-27] MEDS ORDERED: Mouth Moisturizer Spray 30 ML BOTTLE PO PRN (09:30)
--- NOTE | 2024-03-27 11:20 | NUR ---
Pt awake in bed visting with family. Shift assessment completed. VSS with O2 in place via oxymask at 12L. Pt deneis pain at this time. Evans catheter in place draining magali colored urine into evans catheter bag. Skin integrity noted in assessment. INT to LAC discontinued with tip intact due to date being over 4 days. Pt tolerated well with no complaints. Pt has no request at this time. IV medications not given per DRAKE James due to no IV access and disposed into drug buster with DOUGLAS Trujillo as witness. Pt has no request at this time. Call light within reach and fall precautions in place.
--- NOTE | 2024-03-27 12:17 | NUR ---
Discharge instructions provided to pt and pt verbalized understanding of discharge paperwork. INT to Rt forearm discontinued with tip intact, pt tolerated well with no complaints. Pt is leaving facility via uber set up by facility back to home. All questions answered upon discharge.
--- NOTE | 2024-03-27 12:26 | NUR ---
bunk house worker met with patient and friend to review the important message from Medicare and EMS forms. Patient understood and signed the EMS form. Patient expressed he understood the IM but wanted DANYELLE Perdomo to sign. ADRIANA left voicemail with Leanne. ADRIANA secure emailed discharge orders to [facility]. ADRIANA confirmed with EMS they are still on to transport patient to [facility] around 130 pm today. ADRIANA spoke with DANYELLE Perdomo, via telephone. ADRIANA reviewed the important message from Medicare. Leanne understood and had no questions. Leanne provided verbal consent for this form. ADRIANA made copy, placed original in chart and provided copy to patient. ADRIANA provided EMS documentation to patient's nurse to finalize. Discharge plan: [facility]
--- NOTE | 2024-03-27 13:58 | NUR ---
Report called to DOUGLAS Wing at [facility] in [place], [place]. Discharge paperwork sent with pt via EMS to hospice house. Pt left facility via EMS with evans catheter and DESHAWN Perdomo at bedside. All questions and concerns answered.
== END 2024-03-27 13:45 | disposition hospice, home (50) | DRG 291 ==
LOC: COL.ER 11:26 → ICU 13:02 → MEDICAL 13:02
PROVIDERS: Family Medicine; Physician Assistant; ADMIT Internal Medicine
PROC: 5A09357 Assistance with Respiratory Ventilation, Less than 24 Consecutive Hours, Continuous Positive Airway Pressure (ICD-10-PCS; principal; 2024-03-25)
DX: I11.0 Hypertensive heart disease with heart failure (principal); J96.01 Acute respiratory failure with hypoxia; Z96.641 Presence of right artificial hip joint; Z66 Do not resuscitate; K74.60 Unspecified cirrhosis of liver; Z20.822 Contact with and (suspected) exposure to COVID-19; Z51.5 Encounter for palliative care; I48.91 Unspecified atrial fibrillation; F32.A Depression, unspecified; E78.5 Hyperlipidemia, unspecified; N40.0 Benign prostatic hyperplasia without lower urinary tract symptoms; K21.9 Gastro-esophageal reflux disease without esophagitis; K26.7 Chronic duodenal ulcer without hemorrhage or perforation; I44.0 Atrioventricular block, first degree; M19.90 Unspecified osteoarthritis, unspecified site; H26.9 Unspecified cataract; D72.819 Decreased white blood cell count, unspecified; I08.0 Rheumatic disorders of both mitral and aortic valves; Z88.6 Allergy status to analgesic agent; Z88.5 Allergy status to narcotic agent; Z90.49 Acquired absence of other specified parts of digestive tract; Z90.89 Acquired absence of other organs; Z88.8 Allergy status to other drugs, medicaments and biological substances; Z79.01 Long term (current) use of anticoagulants; Z79.899 Other long term (current) drug therapy; Z85.828 Personal history of other malignant neoplasm of skin
CPT/HCPCS: J0456; J0696; J1940; J2405; J3475; J7030; J7050; P9047; Q9967